=== PATIENT | female | born 1965 | race African-American/Black ===

== ENCOUNTER 2018-04-30 07:18 | Emergency (ER) | payer OTHER ==
[2018-04-30] MEDS ORDERED: CYCLOBENZAPRINE HCL 10 MG TABLET PO ONE (07:56)
[2018-04-30] MEDS ORDERED: HYDROCODONE/ACETAMINOPHEN 5-325 MG TABLET PO ONE (07:56)
[2018-04-30 08:43] LABS: AMORPHOUS SEDIMENT,URINE TRACE /HPF; APPEARANCE,URINE CLOUDY; BILIRUBIN,URINE NEGATIVE (NEGATIVE); COLOR,URINE YELLOW; GLUCOSE, URINE NEGATIVE (NEGATIVE); KETONES,URINE NEGATIVE (NEGATIVE); LEUKOCYTE ESTERASE,URINE NEGATIVE (NEGATIVE); NITRITE,URINE NEGATIVE (NEGATIVE); PROTEIN,URINE NEGATIVE (NEGATIVE); URINE SPECIFIC GRAVITY 1.023
--- NOTE | 2018-04-30 09:00 | ER Document Report ---
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 Patient denies that she had any immediate pain or popping sensation, states that the pain started gradually over the course of the last couple of days. She admits that it feels like a dull ache that when she moves is worse on the left side. Patient denies any numbness or tingling, loss of bladder or bowel function. TRAVEL OUTSIDE OF THE [place] IN LAST 30 DAYS: No - Related Data Allergies/Adverse Reactions: No Known Allergies Allergy (Verified 02/14/16 09:34) Past Medical History - General Information source: Patient - Social History Smoking Status: Never Smoker Frequency of alcohol use: Occasional Drug Abuse: None Family History: Reviewed & Not Pertinent Patient has suicidal ideation: No Patient has homicidal ideation: No Neurological Medical History: Reports: Hx Migraine Renal/ Medical History: Denies: Hx Peritoneal Dialysis Review of Systems - Review of Systems Constitutional: No symptoms reported EENT: No symptoms reported Cardiovascular: No symptoms reported Respiratory: No symptoms reported Gastrointestinal: No symptoms reported Genitourinary: No symptoms reported Female Genitourinary: No symptoms reported Musculoskeletal: See HPI Skin: No symptoms reported Hematologic/Lymphatic: No symptoms reported Neurological/Psychological: No symptoms reported Physical Exam - Vital signs Vitals: Temp Pulse Resp BP Pulse Ox 98.1 F 77 16 163/93 H 100 04/30/18 07:25 04/30/18 07:25 04/30/18 07:25 04/30/18 07:25 04/30/18 07:25 - Notes Notes: PHYSICAL EXAMINATION: GENERAL: Uncomfortable appearing, but in no acute distress. HEAD: Atraumatic, normocephalic. EYES: Pupils equal round and reactive to light, extraocular movements intact, sclera anicteric, conjunctiva are normal. ENT: ear canals without erythema or foreign body, TMs pearly leone with good bony landmarks, nares patent, oropharynx clear without exudates. Moist mucous membranes. NECK: Normal range of motion, supple without lymphadenopathy LUNGS: CTAB and equal. No wheezes rales or rhonchi. HEART: Regular rate and rhythm without murmurs ABDOMEN: Soft, no tenderness. No guarding, no rebound BACK: Left lumbar tenderness, no vertebral tenderness, normal ROM GI/: no CVA tenderness EXTREMITIES: Normal range of motion, no pitting edema. No cyanosis. NEUROLOGICAL: Cranial nerves grossly intact. Normal sensory/motor exams. PSYCH: Normal mood, normal affect. SKIN: Warm, Dry, normal turgor, no rashes or lesions noted Course - Re-evaluation Re-evalutation: 04/30/18 09:07 Urinalysis negative for infection. Patient be placed on muscle relaxers and given lidocaine patches. Patient advised that she can also take an anti- inflammatory with this. She is advised not to take multiple anti- inflammatories together. - Vital Signs Vital signs: Temp Pulse Resp BP Pulse Ox 98.1 F 77 16 163/93 H 100 04/30/18 07:25 04/30/18 07:25 04/30/18 07:25 04/30/18 07:25 04/30/18 07:25 - Laboratory Laboratory results interpreted by me: 04/30/18 08:00 Urine Urobilinogen 2.0 H Discharge - Discharge Clinical Impression: Left low back pain Qualifiers: Chronicity: acute Sciatica presence: without sciatica Qualified Code(s): M54.5 - Low back pain Condition: Stable Disposition: HOME, SELF-CARE Instructions: Muscle Strain ([facility]), Warm Packs ([facility]), Low Back Pain ([facility]) Additional Instructions: Return immediately for any new or worsening symptoms. Follow up with primary care provider, call tomorrow to make followup appointment. Prescriptions: Cyclobenzaprine HCl [Flexeril 10 mg Tablet] 10 mg PO TIDP PRN #15 tab PRN Reason: Lidocaine 1 each TP BID PRN #10 adh..patch PRN Reason: Forms: Return to Work Referrals: DAGMAR CORONEL MD [Primary Care Provider] - Follow up as needed
[2018-04-30 09:08] VITALS: BP 156/87
== END 2018-04-30 09:08 | disposition home or self-care (01) ==
LOC: ER 07:18
DX: M54.5 Low back pain (principal); R10.9 Unspecified abdominal pain; X50.0XXA Overexertion from strenuous movement or load, initial encounter; Y93.F2 Activity, caregiving, lifting; Y92.129 Unspecified place in nursing home as the place of occurrence of the external cause; Y99.0 Civilian activity done for income or pay
CPT/HCPCS: 81001; 99283

== ENCOUNTER 2020-08-25 08:17 | Observation (INO) | payer BC, OTHER ==
[2020-08-25] MEDS ORDERED: METHYLPREDNISOLONE INJ 125 MG/2 ML SDV IV ONE (08:33)
[2020-08-25] MEDS ORDERED: FAMOTIDINE INJ/PF 20 MG/2 ML SDV IV ONE (08:34)
[2020-08-25] MEDS ORDERED: DIPHENHYDRAMINE HCL 50 MG/ML VIAL IV ONE (08:34)
[2020-08-25] MEDS ORDERED: RACEPINEPHRINE HCL 2.25% NEB 0.5 ML AMPUL NEB ONE (08:40)
--- NOTE | 2020-08-25 08:41 | ER Document Report ---
ED General - General Chief Complaint: Swelling of Tongue Stated Complaint: FACIAL SWELLING,TONGUE SWELLING Time Seen by Provider: 08/25/20 08:29 Primary Care Provider: DAGMAR CORONEL MD [Primary Care Provider] - Follow up as needed TRAVEL OUTSIDE OF THE [place] IN LAST 30 DAYS: No - HPI Notes: 54-year-old female presents to the emergency room by private vehicle for complaints of lip swelling and tongue swelling that started afternoon. Patient reports that she has noticed her tongue getting slightly more swollen as well as her upper and lower lip. Denies any difficulty breathing, shortness of breath, chest pain, nausea vomiting or diarrhea. Patient states that she was recently placed on lisinopril for hypertension a month ago, she last took her dose of lisinopril at 2130 last night. Patient does have a history of allergy to fish, has not knowingly had any fish that she can recall. Has not tried any [id number]-[id number] medications for this issue. Denies any prior history of angioedema. Denies any chest pain, shortness of breath, drooling, nausea vomiti ng diarrhea, abdominal pain, fevers or chills, headache, lightheadedness, dizziness, weakness. - Related Data Allergies/Adverse Reactions: No Known Allergies Allergy (Verified 02/14/16 09:34) Home Medications: lisinopril Past Medical History - General Information source: Patient - Social History Smoking Status: Never Smoker Chew tobacco use (# tins/day): No Frequency of alcohol use: None Drug Abuse: None Family History: Reviewed & Not Pertinent Neurological Medical History: Reports: Hx Migraine Renal/ Medical History: Denies: Hx Peritoneal Dialysis Review of Systems - Review of Systems Constitutional: No symptoms reported EENT: See HPI Cardiovascular: No symptoms reported Respiratory: No symptoms reported Gastrointestinal: No symptoms reported Genitourinary: No symptoms reported Female Genitourinary: No symptoms reported Musculoskeletal: No symptoms reported Skin: No symptoms reported Hematologic/Lymphatic: No symptoms reported Neurological/Psychological: No symptoms reported Physical Exam - Vital signs Vitals: Temp Pulse Resp BP Pulse Ox 99.1 F 84 18 155/92 H 98 08/25/20 08:23 08/25/20 08:23 08/25/20 08:23 08/25/20 08:23 08/25/20 08:23 - General General appearance: Appears well - HEENT Head: Normocephalic Eyes: Normal Conjunctiva: Normal Extraocular movements intact: Yes Sinus: Normal Nasal: Normal Mouth/Lips: Angioedema Mucous membranes: Normal Pharynx: Normal. No: Erythema, Exudate, Peritonsillar abscess, Tonsillar hypertrophy, Uvular edema, Potential airway comprom. Neck: Normal - Respiratory Respiratory status: No respiratory distress Chest status: Nontender Breath sounds: Normal Chest palpation: Normal - Cardiovascular Rhythm: Regular Heart sounds: Normal auscultation Murmur: No - Abdominal Inspection: Normal Distension: No distension Bowel sounds: Normal Tenderness: Nontender Organomegaly: No organomegaly - Neurological Neuro grossly intact: Yes Orientation: AAOx4 [place] Coma Scale Eye Opening: Spontaneous [place] Coma Scale Verbal: Oriented [place] Coma Scale Motor: Obeys Commands [place] Coma Scale Total: 15 Speech: Normal Cranial nerves: Normal Cerebellar coordination: Normal Motor strength normal: LUE, RUE, LLE, RLE Additional motor exam 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 Nurses notes reviewed. On initial presentation patient, patient appears to be a grade 3 with the [place] grades fro angioedema. Consulted with Dr. Arzola, ER supervising physician, he did going to evaluate patient at bedside. Patient given Solu-Medrol 125 IVP, famotidine 20 mg IVP, Benadryl 50 mg IVP, epinephrine 0.3 IM as well as IV fluids. Type and screen pending. Patient is in no distress. Patient states she is having some difficulty articulating her words due to her tongue swelling. 0900-on reevaluation patient states that she is feeling better, patient still has some tongue swelling but sounds much clearer with her communication when she is speaking. 1100-consent for FFP signed, type and screen has been completed. 1320- consulted with Dr. Kacie Corley, hospitalist, to have patient placed in observation for her angioedema. Patient's vitals are stable and she has no distress. Patient was accepted to medical service. Patient agrees plan of care. 08/25/20 13:44 - Vital Signs Vital signs: Temp Pulse Resp BP Pulse Ox 99.1 F 84 15 135/86 H 100 08/25/20 08:23 08/25/20 08:23 08/25/20 12:31 08/25/20 12:31 08/25/20 12:31 - Laboratory Result Diagrams: 08/25/20 09:40 08/25/20 10:20 Laboratory results interpreted by me: 08/25/20 08/25/20 09:40 10:20 MCV 98 H MCH 34.0 H Plt Count 147 L Chloride 109 H Glucose 125 H - EKG Interpretation by Ne EKG shows normal: Sinus rhythm Rate: Normal Rhythm: NSR Additional EKG results interpreted by me: 08/25/20 13:46 HR 92, NSR, P axis 67, QRS 68, T 54. No STEMI, no ST segment elevations. Evaluated by Dr. Arzola Discharge - Discharge Clinical Impression: Angioedema Condition: Stable Disposition: ADMITTED OBSERVATION Unit Admitted: Telemetry Referrals: DAGMAR CORONEL MD [Primary Care Provider] - Follow up as needed
[2020-08-25] MEDS ORDERED: NORMAL SALINE 1000 ML 1,000 ML IV ONE (08:44)
[2020-08-25] MEDS ORDERED: EPINEPHRINE INJ/PF 1 MG/1 ML AMPULE IM ONE (08:44)
[2020-08-25] MEDS ORDERED: EPINEPHRINE INJ/PF 1 MG/1 ML AMPULE ONE (08:45)
--- NOTE | 2020-08-25 09:18 | RADIOLOGY REPORT (SQ) ---
EXAM DESCRIPTION: CHEST SINGLE VIEW IMAGES COMPLETED DATE/TIME: 08/25/2020 9:02 am REASON FOR STUDY: angioedema COMPARISON: None. EXAM PARAMETERS: NUMBER OF VIEWS: One view. TECHNIQUE: Single frontal radiographic view of the chest acquired. RADIATION DOSE: NA LIMITATIONS: None. FINDINGS: LUNGS AND PLEURA: No opacities, masses or pneumothorax. No pleural effusion. MEDIASTINUM AND HILAR STRUCTURES: No masses. Contour normal. HEART AND VASCULAR STRUCTURES: Heart normal in size. Normal vasculature. BONES: No acute findings. HARDWARE: None in the chest. OTHER: No other significant finding. IMPRESSION: NO ACUTE RADIOGRAPHIC FINDING IN THE CHEST. TECHNICAL DOCUMENTATION: JOB ID: [id number] 2010 [employer]- All Rights Reserved Reading location - IP/workstation name: [id number]
--- NOTE | 2020-08-25 09:54 | EKG REPORT ---
SEVERITY:- NORMAL ECG - SINUS RHYTHM : Confirmed by: Marguerite Hwang 25-Aug-2020 09:54:06
[2020-08-25 09:56] LABS: ABSOLUTE EOSINOPHILS # (AUTO) 0.3 10^3/uL (0.0-0.6); ABSOLUTE LYMPHOCYTES (AUTO) 1.7 10^3/uL (0.5-4.7); BASOPHILS % (AUTO) 0.3 % (0-2); HEMOGLOBIN 13.3 g/dL (12.0-15.5); PLATELET COUNT 147 10^3/uL (150-450); TOTAL CELLS COUNTED % (AUTO) 100 %
[2020-08-25 10:01] LABS: ABSOLUTE MONOCYTES (AUTO) 0.5 10^3/uL (0.1-1.4); ABSOLUTE NEUT (AUTO) 4.6 10^3/uL (1.7-8.2); EOSINOPHILS % (AUTO) 4.2 % (0-6); HEMATOCRIT 38.6 % (36.0-47.0); LYMPHOCYTES % (AUTO) 23.9 % (13-45); MEAN CORPUSCULAR HGB CONC 34.5 g/dL (32.0-36.0); MEAN CORPUSCULAR VOLUME 98 fl (80-97); MONOCYTES % (AUTO) 7.2 % (3-13); RED BLOOD COUNT 3.92 10^6/uL (3.72-5.28); RED CELL DISTRIBUTION WIDTH 13.2 % (11.5-14.0); SEGMENTED NEUTROPHILS % (AUTO) 64.4 % (42-78); WHITE BLOOD COUNT 7.2 10^3/uL (4.0-10.5)
[2020-08-25 11:04] LABS: ALBUMIN 4.3 g/dL (3.5-5.0); ALKALINE PHOSPHATASE 62 U/L (38-126); ANION GAP 9 (5-19); ASPARTATE AMINO TRANSFERASE 31 U/L (14-36); BILIRUBIN,DIRECT 0.2 mg/dL (0.0-0.4); BILIRUBIN,TOTAL 0.6 mg/dL (0.2-1.3); BLOOD UREA NITROGEN 12 mg/dL (7-20); CALCIUM 9.4 mg/dL (8.4-10.2); CARBON DIOXIDE 25 mmol/L (22-30); CHLORIDE 109 mmol/L (98-107); GLUCOSE 125 mg/dL (75-110); TOTAL PROTEIN 7.1 g/dL (6.3-8.2)
[2020-08-25] MEDS ORDERED: NORMAL SALINE 250 ML IV PRN ×2 (11:46)
[2020-08-25] MEDS ORDERED: DIPHENHYDRAMINE HCL 50 MG/ML VIAL IV PRN (14:42)
--- NOTE | 2020-08-25 17:13 | PDOC H&P ---
History of Present Illness Admission Date/PCP: 08/25/20 13:30 DAGMAR CORONEL MD Patient complains of: tongue swelling and facial swelling History of Present Illness: FRIDA HARRINGTON is a 54 year old female, recent diagnosis of high blood pressure, history of glaucoma who came to the ED due to tongue swelling lip swelling and pooling of saliva. She was recently diagnosed with hypertension a month and a half back and was started on lisinopril 10. 1 day prior to admission she noted mild lip swelling. The morning of admission she noted increased swelling of her face lip and tongue with associated pooling of saliva. She denied any shortness of breath chest pain palpitations. She denies any fever or rash. In the ED vital signs 135/87 heart rate of 106 respiratory rate of 10 saturating 100% on room air. Physical exam showed facial swelling with lip and tongue swelling. No stridor, no cyanosis. CBC and CMP were unremarkable. She was given epinephrine IM, IV Benadryl, IV methylprednisolone. Hospitalist service was called for further management. Past Medical History Cardiac Medical History: Reports: Hyperlipidema, Hypertension Pulmonary Medical History: Denies: Asthma, Bronchitis, Chronic Obstructive Pulmonary Disease (COPD), Respiratory Failure EENT Medical History: Reports: Cataracts, Other - Glaucoma Neurological Medical History: Reports: Migraine Endocrine Medical History: Reports: None Renal/ Medical History: Reports: None Malignancy Medical History: Reports: None GI Medical History: Reports: None Musculoskeltal Medical History: Reports: None Skin Medical History: Reports: None Psychiatric Medical History: Reports: None Hematology: Reports: None Infectious Medical History: Reports: None Past Surgical History Past Surgical History: Reports: Other - Eye surgeries Social History Information Source: Patient Lives with: Family Smoking Status: Never Smoker Electronic Cigarette use?: No Frequency of Alcohol Use: None Drugs: None Family History Family History: Reviewed & Not Pertinent Parental Family History Reviewed: Yes Children Family History Reviewed: Yes Sibling(s) Family History Reviewed.: Yes Medication/Allergy Home Medications: Atorvastatin Calcium [Lipitor 20 mg Tablet] 20 mg PO QHS 08/25/20 Cetirizine HCl [Zyrtec 10 mg Tablet] 10 mg PO DAILY 08/25/20 Dorzolamide/Timolol/Pf [Cosopt Pf Eye Drops] 1 each OU BID 08/25/20 Lisinopril [Prinivil 5 mg Tablet] 5 mg PO DAILY 08/25/20 Travoprost 1 drop OU QHS 08/25/20 Ubidecarenone/Vit E Acet [Co Q-10 100 mg Softgel] 400 mg PO DAILY 08/25/20 Allergies/Adverse Reactions: lisinopril Allergy (Severe, Verified 08/25/20 14:53) Angioneurotic Edema Review of Systems Constitutional: ABSENT: chills, fever(s), weakness Eyes: ABSENT: visual disturbances Ears: ABSENT: hearing changes Nose, Mouth, and Throat: ABSENT: sore throat Cardiovascular: PRESENT: edema. ABSENT: dyspnea on exertion, orthropnea Respiratory: ABSENT: cough, dyspnea Gastrointestinal: ABSENT: abdominal pain, diarrhea Neurological: PRESENT: abnormal speech. ABSENT: focal weakness Physical Exam Vital Signs: Temp Pulse Resp BP Pulse Ox 98.9 F 109 H 16 145/94 H 100 08/25/20 16:31 08/25/20 16:31 08/25/20 16:31 08/25/20 16:31 08/25/20 16:31 Intake & Output 08/24/20 08/25/20 08/26/20 06:59 06:59 06:59 Intake Total 1175 Balance 1175 Weight 57.6 kg General appearance: PRESENT: no acute distress, cooperative Head exam: PRESENT: atraumatic, normocephalic Eye exam: PRESENT: EOMI, PERRLA Ear exam: PRESENT: normal external ear exam Mouth exam: PRESENT: other - Positive lip and tongue swelling Throat exam: ABSENT: post pharyngeal erythema, tonsillar erythema Neck exam: PRESENT: full ROM. ABSENT: JVD, lymphadenopathy Respiratory exam: PRESENT: clear to auscultation brie, symmetrical, unlabored. ABSENT: accessory muscle use, stridor, wheezes Cardiovascular exam: PRESENT: RRR, +S1, +S2 Pulses: PRESENT: +2 pedal pulses bilateral Vascular exam: PRESENT: normal capillary refill GI/Abdominal exam: PRESENT: normal bowel sounds, soft. ABSENT: rebound, tenderness Extremities exam: PRESENT: full ROM Musculoskeletal exam: PRESENT: full ROM Neurological exam: PRESENT: alert, awake, oriented to person, oriented to place, oriented to time, oriented to situation Psychiatric exam: PRESENT: normal mood Skin exam: PRESENT: normal color Results Laboratory Results: 08/25/20 09:40 08/25/20 10:20 08/25/20 08/25/20 08/25/20 09:40 09:40 09:40 WBC 7.2 RBC 3.92 Hgb 13.3 Hct 38.6 MCV 98 H MCH 34.0 H MCHC 34.5 RDW 13.2 Plt Count 147 L Seg Neutrophils % 64.4 Sodium Cancelled Potassium Cancelled Chloride Cancelled Carbon Dioxide Cancelled Anion Gap Cancelled BUN Cancelled Creatinine Cancelled Est GFR ( Amer) Cancelled Est GFR (Non-Af Amer) Cancelled Glucose Cancelled Calcium Cancelled Total Bilirubin Cancelled AST Cancelled Alkaline Phosphatase Cancelled Total Protein Cancelled Albumin Cancelled Blood Type A POSITIVE Antibody Screen NEGATIVE 08/25/20 10:20 WBC RBC Hgb Hct MCV MCH MCHC RDW Plt Count Seg Neutrophils % Sodium 143.1 Potassium 4.0 Chloride 109 H Carbon Dioxide 25 Anion Gap 9 BUN 12 Creatinine 0.69 Est GFR ( Amer) > 60 Est GFR (Non-Af Amer) Glucose 125 H Calcium 9.4 Total Bilirubin 0.6 AST 31 Alkaline Phosphatase 62 Total Protein 7.1 Albumin 4.3 Blood Type Antibody Screen Impressions: Chest X-Ray 08/25/20 08:35 IMPRESSION: NO ACUTE RADIOGRAPHIC FINDING IN THE CHEST. Assessment and Plan - Diagnosis (1) Angioedema Qualifiers: Encounter type: initial encounter Qualified Code(s): T78.3XXA - Angioneurotic edema, initial encounter Is this a current diagnosis for this admission?: Yes Plan: - recently diagnosed HTN started on lisinopril has been taking 1 1/2 months - came in with lip and tongue swelling with pooling of saliva - no cyanosis, no desaturation, no stridor - no known allergies besides fish - given epinephrine IM, FFP, benadryl and dexa in the ED - will admit for obvs - continue benadrylm steroids add famotidine - monitor in tele floor - lisinopril added to allergy list (2) Essential hypertension Is this a current diagnosis for this admission?: Yes Plan: - was taking lisinopril but developed angioedema - will have to switch to amlodipine - ff.up with PCP (3) HLD (hyperlipidemia) Qualifiers: Hyperlipidemia type: unspecified Qualified Code(s): E78.5 - Hyperlipidemia, unspecified Is this a current diagnosis for this admission?: Yes Plan: - will resume lisinopril - Time Time Spent with patient: 35 or more minutes Anticipated Discharge Disposition: Home, Self Care Anticipated Discharge Timeframe: within 48 hours
[2020-08-25] MEDS: DIPHENHYDRAMINE HCL 50 MG/ML VIAL IV SCH (17:22)
[2020-08-25] MEDS ORDERED: TIMOLOL OU SCH (18:00)
[2020-08-25] MEDS ORDERED: DORZOLAMIDE OU SCH (18:00)
--- NOTE | 2020-08-25 18:02 | ER Document Report ---
Entered by JAM FELDER SCRIBE 08/25/20 0912 Acting as scribe for:MARY BRICEÑO MD Doctor's Note Notes: 08/25/20 17:59 Patient presents today which is 2 days with swelling noted in her tongue. Patient takes lisinopril for high blood pressure which she has been on for the last month patient's only other allergy that she is aware of his seafood. Patient denies having had any recent seafood. And patient's last dose of lisinopril was yesterday. On exam patient has no drooling or stridor no respiratory distress at this time skin otherwise shows no urticarial lesions. There is swelling of the lips and tongue posterior oropharynx is clear and patent no exudate or any signs for infection. Diagnosis angioedema of the tongue secondary to medications. Patient is improving while in the ED, however there is swelling that has not completely resolved. Orders for additional treatment including fresh frozen plasma has been made. Patient has responded to IM epinephrine IV Benadryl IV Pepcid and IV Solu-Medrol. However there is still significant swelling of tongue present and patient will be presented for admission to the hospital. I personally performed the services described in the documentation, reviewed and edited the documentation which was dictated to the scribe in my presence, and it accurately records my words and actions.
[2020-08-25] MEDS: IPRATROPIUM/ALBUTEROL 0.5-2.5 MG/3 ML AMPUL NEB SCH (19:51)
[2020-08-25] MEDS: FAMOTIDINE INJ/PF 20 MG/2 ML SDV IV SCH (21:33)
[2020-08-25] MEDS ORDERED: (PENDING PHARMACY ID) (Travoprost [Travoprost] 1 DROP) OU SCH (22:00)
[2020-08-25] MEDS ORDERED: ATORVASTATIN CALCIUM 20 MG TABLET PO SCH (22:00)
[2020-08-25] MEDS ORDERED: LATANOPROST 0.005% OPH SOLN 2.5 ML OU SCH (22:00)
[2020-08-26 00:02] LABS: ABSOLUTE LYMPHOCYTES (AUTO) 0.6 10^3/uL (0.5-4.7); ABSOLUTE MONOCYTES (AUTO) 0.2 10^3/uL (0.1-1.4); ABSOLUTE NEUT (AUTO) 6.2 10^3/uL (1.7-8.2); BASOPHILS % (AUTO) 0.1 % (0-2); HEMATOCRIT 35.7 % (36.0-47.0); HEMOGLOBIN 12.8 g/dL (12.0-15.5); LYMPHOCYTES % (AUTO) 8.8 % (13-45); MEAN CORPUSCULAR HEMOGLOBIN 34.4 pg (27.0-33.4); MEAN CORPUSCULAR HGB CONC 35.7 g/dL (32.0-36.0); MEAN CORPUSCULAR VOLUME 96 fl (80-97); MONOCYTES % (AUTO) 3.5 % (3-13); PLATELET COUNT 169 10^3/uL (150-450); RED BLOOD COUNT 3.71 10^6/uL (3.72-5.28); RED CELL DISTRIBUTION WIDTH 13.6 % (11.5-14.0); SEGMENTED NEUTROPHILS % (AUTO) 87.6 % (42-78); TOTAL CELLS COUNTED % (AUTO) 100 %; WHITE BLOOD COUNT 7.1 10^3/uL (4.0-10.5)
[2020-08-26] MEDS: DIPHENHYDRAMINE HCL 50 MG/ML VIAL IV SCH ×2 (00:11→05:34)
[2020-08-26] MEDS: IPRATROPIUM/ALBUTEROL 0.5-2.5 MG/3 ML AMPUL NEB SCH (08:15)
[2020-08-26] MEDS ORDERED: METHYLPREDNISOLONE INJ 125 MG/2 ML SDV IV SCH (10:00)
[2020-08-26] MEDS ORDERED: ENOXAPARIN SODIUM INJ 40 MG/0.4 ML DISP.SYRIN SUBCUT SCH (10:00)
[2020-08-26] MEDS: FAMOTIDINE INJ/PF 20 MG/2 ML SDV IV SCH (10:51)
[2020-08-26 11:29] VITALS: BP 140/81
--- NOTE | 2020-08-26 16:53 | PDOC DISCHARGE SUMMARY ---
Impression - Admit/DC Date/PCP Admission Date/Primary Care Provider: 08/25/20 13:30 DAGMAR CORONEL MD Discharge Date: 08/26/20 - Discharge Diagnosis (1) Angioedema Is this a current diagnosis for this admission?: Yes (2) Essential hypertension Is this a current diagnosis for this admission?: Yes (3) HLD (hyperlipidemia) Is this a current diagnosis for this admission?: Yes - Additional Information Discharge Diet: As Tolerated Discharge Activity: Activity As Tolerated Referrals: Douglas Ndiaye [Other] (pt to make appt) Prescriptions: Famotidine [Acid Line Installer Repairer] 20 mg PO BID 7 Days #14 tablet Home Medications: Atorvastatin Calcium [Lipitor 20 mg Tablet] 20 mg PO QHS 08/25/20 Cetirizine HCl [Zyrtec 10 mg Tablet] 10 mg PO DAILY 08/25/20 Dorzolamide/Timolol/Pf [Cosopt Pf Eye Drops] 1 each OU BID 08/25/20 Travoprost 1 drop OU QHS 08/25/20 Ubidecarenone/Vit E Acet [Co Q-10 100 mg Softgel] 400 mg PO DAILY 08/25/20 Famotidine [Acid Line Installer Repairer] 20 mg PO BID 7 Days #14 tablet 08/26/20 History of Present Illiness History of Present Illness: FRIDA HARRINGTON is a 54 year old female, recent diagnosis of high blood pressure, history of glaucoma who came to the ED due to tongue swelling lip swelling and pooling of saliva. She was recently diagnosed with hypertension a month and a half back and was started on lisinopril 10. 1 day prior to admission she noted mild lip swelling. The morning of admission she noted increased swelling of her face lip and tongue with associated pooling of saliva. She denied any shortness of breath chest pain palpitations. She denies any fever or rash. In the ED vital signs 135/87 heart rate of 106 respiratory rate of 10 saturating 100% on room air. Physical exam showed facial swelling with lip and tongue swelling. No stridor, no cyanosis. CBC and CMP were unremarkable. She was given epinephrine IM, IV Benadryl, IV methylprednisolone. Hospitalist service was called for further management. Hospital Course Hospital Course: Patient was admitted overnight for observation. She was given famotidine, diphenhydramine and IV steroids. She did well overnight with complete resolution of lip and tongue swelling overnight. She was successfully discharged on epi pen, famotidine and benadryl. Lisinopril added to her allergy list. Physical Exam Vital Signs: Temp Pulse Resp BP Pulse Ox 97.8 F 97 18 140/81 H 99 08/26/20 11:27 08/26/20 11:27 08/26/20 11:27 08/26/20 11:27 08/26/20 11:27 Intake & Output 08/25/20 08/26/20 08/27/20 06:59 06:59 06:59 Intake Total 1734 Balance 1734 Weight 57.6 kg General appearance: PRESENT: no acute distress, mild distress Head exam: PRESENT: atraumatic, normocephalic Eye exam: PRESENT: EOMI, PERRLA Mouth exam: PRESENT: moist, other - no tongue swelling, no lip swelling Throat exam: ABSENT: post pharyngeal erythema, tonsillar erythema Neck exam: PRESENT: full ROM Respiratory exam: PRESENT: clear to auscultation brie, symmetrical, unlabored Cardiovascular exam: PRESENT: RRR, +S1, +S2 Pulses: PRESENT: +2 pedal pulses bilateral GI/Abdominal exam: PRESENT: normal bowel sounds, soft. ABSENT: rebound, tenderness Extremities exam: PRESENT: full ROM Musculoskeletal exam: PRESENT: full ROM Neurological exam: PRESENT: alert, awake, oriented to person, oriented to place, oriented to time, oriented to situation Psychiatric exam: PRESENT: normal mood Skin exam: PRESENT: normal color Results Laboratory Results: WBC 7.1 10^3/uL (4.0-10.5) 08/25/20 23:43 RBC 3.71 10^6/uL (3.72-5.28) L 08/25/20 23:43 Hgb 12.8 g/dL (12.0-15.5) 08/25/20 23:43 Hct 35.7 % (36.0-47.0) L 08/25/20 23:43 MCV 96 fl (80-97) 08/25/20 23:43 MCH 34.4 pg (27.0-33.4) H 08/25/20 23:43 MCHC 35.7 g/dL (32.0-36.0) 08/25/20 23:43 RDW 13.6 % (11.5-14.0) 08/25/20 23:43 Plt Count 169 10^3/uL (150-450) 08/25/20 23:43 Lymph % (Auto) 8.8 % (13-45) L 08/25/20 23:43 [place] % (Auto) 3.5 % (3-13) 08/25/20 23:43 Eos % (Auto) 0.0 % (0-6) 08/25/20 23:43 Baso % (Auto) 0.1 % (0-2) 08/25/20 23:43 Absolute Neuts (auto) 6.2 10^3/uL (1.7-8.2) 08/25/20 23:43 Absolute Lymphs (auto) 0.6 10^3/uL (0.5-4.7) 08/25/20 23:43 Absolute Monos (auto) 0.2 10^3/uL (0.1-1.4) 08/25/20 23:43 Absolute Eos (auto) 0.0 10^3/uL (0.0-0.6) 08/25/20 23:43 Absolute Basos (auto) 0.0 10^3/uL (0.0-0.2) 08/25/20 23:43 Seg Neutrophils % 87.6 % (42-78) H 08/25/20 23:43 Sodium 143.1 mmol/L (137-145) 08/25/20 10:20 Potassium 4.0 mmol/L (3.6-5.0) 08/25/20 10:20 Chloride 109 mmol/L (98-107) H 08/25/20 10:20 Carbon Dioxide 25 mmol/L (22-30) 08/25/20 10:20 Anion Gap 9 (5-19) 08/25/20 10:20 BUN 12 mg/dL (7-20) 08/25/20 10:20 Creatinine 0.69 mg/dL (0.52-1.25) 08/25/20 10:20 Est GFR ( Amer) > 60 (>60) 08/25/20 10:20 Est GFR (Non-Af Amer) Cancelled 08/25/20 09:40 Est GFR (MDRD) Non-Af > 60 (>60) 08/25/20 10:20 Glucose 125 mg/dL (75-110) H 08/25/20 10:20 Calcium 9.4 mg/dL (8.4-10.2) 08/25/20 10:20 Total Bilirubin 0.6 mg/dL (0.2-1.3) 08/25/20 10:20 Direct Bilirubin 0.2 mg/dL (0.0-0.4) 08/25/20 10:20 Neonat Total Bilirubin Not Reportable 08/25/20 10:20 Neonat Direct Bilirubin Not Reportable 08/25/20 10:20 Neonat Indirect Bili Not Reportable 08/25/20 10:20 AST 31 U/L (14-36) 08/25/20 10:20 ALT 25 U/L (<35) 08/25/20 10:20 Alkaline Phosphatase 62 U/L (38-126) 08/25/20 10:20 Total Protein 7.1 g/dL (6.3-8.2) 08/25/20 10:20 Albumin 4.3 g/dL (3.5-5.0) 08/25/20 10:20 EGFR Cancelled 08/25/20 09:40 Blood Type A POSITIVE 08/25/20 09:40 Antibody Screen NEGATIVE 08/25/20 09:40 Impressions: Chest X-Ray 08/25/20 08:35 IMPRESSION: NO ACUTE RADIOGRAPHIC FINDING IN THE CHEST. Plan Health Concerns: Anaphylaxis Kit Use your anaphylaxis kit for life-threatening allergic reactions. It can be carried with you. After using the kit, you should get immediate medical attention. The kit contains a syringe with adrenaline for injection, and an antihistamine pill. Expected side effects of adrenaline are rapid heartbeat, shakiness, weakness, and occasionally headache or nausea. These symptoms develop within minutes of the injection, and usually wear off within 30 minutes. The antihistamine causes drowsiness. Review the instructions in the kit carefully. Be sure you know how to use it properly. Check the expiration date, and replace an unused kit before it expires. If you haven't used an anaphylaxis kit before, please return here when you've filled the prescription. We'll show you how to use it. Time Spent: Less than 30 Minutes Stroke Is this a Stroke Patient?: No Acute Heart Failure Is this a Heart Failure Patient?: No
== END 2020-08-26 12:00 | disposition home or self-care (01) ==
LOC: ER 08:17 → EH 13:30 → 4N 15:42
PROVIDERS: ADMIT Internal Medicine; ATTEND Internal Medicine
DX: T78.3XXA Angioneurotic edema, initial encounter (principal); I10 Essential (primary) hypertension; E78.5 Hyperlipidemia, unspecified; H40.9 Unspecified glaucoma; Z79.899 Other long term (current) drug therapy; Z88.8 Allergy status to other drugs, medicaments and biological substances; X58.XXXA Exposure to other specified factors, initial encounter
CPT/HCPCS: 93005; 99284; 96372; 96361; 96374; 96375; 86900; 86901; 36415; 36430; 86850; 85025; 80053; 71045; 93010; 94640 ×2; G0378 ×2; P9017; J1200 ×2; J0171; J2930 ×2; J7030; S0028 ×2; J3490

== ENCOUNTER 2020-08-30 14:55 | Emergency (ER) | payer BC ==
[2020-08-30] MEDS ORDERED: DIPHENHYDRAMINE HCL 50 MG/ML VIAL IV ONE (15:13)
[2020-08-30] MEDS ORDERED: FAMOTIDINE INJ/PF 20 MG/2 ML SDV IV ONE (15:13)
[2020-08-30] MEDS ORDERED: EPINEPHRINE INJ/PF 1 MG/1 ML AMPULE IM ONE (15:13)
[2020-08-30] MEDS ORDERED: METHYLPREDNISOLONE INJ 125 MG/2 ML SDV IV ONE (15:13)
--- NOTE | 2020-08-30 15:16 | ER Document Report ---
ED Medical Screen (RME) - General Chief Complaint: Facial Swelling Stated Complaint: FACIAL SWELLING Time Seen by Provider: 08/30/20 15:08 Primary Care Provider: DAGMAR CORONEL MD [Primary Care Provider] - Follow up as needed TRAVEL OUTSIDE OF THE [place] IN LAST 30 DAYS: No - HPI Notes: 08/30/20 15:14 54-year-old female to the emergency department with complaints of lip swelling that began while she was at the dentist. Last week she was trying to get some dental work done and her lips began to swell. Patient was admitted to the hospital and was believed that the lisinopril was causing her angioedema. She was discharged and she is doing well with the lisinopril stopped. However, she went back to the dentist today and had lidocaine in her mouth to numb her and then her lips began to swell again. She states that she was written for an EpiPen but did not take it. She states that she feels like her heart is beating fast and she feels little lightheaded as well. Denies any nausea vomiting. Denies any shortness of breath. Denies any chest pain. Denies any diarrhea. Charge was called and asked for bed immediately. I have placed an order for an epi injection and have notified ER attending of patient. I performed a brief medical screening exam on the patient determined that the patient needs further evaluation and management by main side provider. I have placed initial orders to help expedite care. - Related Data Allergies/Adverse Reactions: lisinopril Allergy (Severe, Verified 08/30/20 15:08) Angioneurotic Edema fish Allergy (Uncoded 08/30/20 15:08) Past Medical History - Past Medical History Cardiac Medical History: Reports: Hx Hypercholesterolemia, Hx Hypertension Denies: Hx Congestive Heart Failure, Hx Heart Attack Pulmonary Medical History: Denies: Hx Asthma, Hx Bronchitis, Hx COPD, Hx Pneumonia, Hx Respiratory Failure, Hx Tuberculosis Neurological Medical History: Reports: Hx Migraine. Denies: Hx Seizures, Hx Parkinson's Disease Renal/ Medical History: Denies: Hx End Stage Renal Disease, Hx Kidney Stones, Hx Peritoneal Dialysis GI Medical History: Denies: Hx Cirrhosis, Hx Gastroesophageal Reflux Disease, Hx Ulcer Musculoskeltal Medical History: Denies Hx Arthritis, Denies Hx Multiple Sclerosis Psychiatric Medical History: Denies: Hx Bipolar Disorder, Hx Depression, Hx Schizophrenia Past Surgical History: Reports: Other - Eye surgeries Physical Exam - Vital signs Vitals: Temp Pulse Resp BP Pulse Ox 98.9 F 99 17 160/106 H 98 08/30/20 15:06 08/30/20 15:06 08/30/20 15:06 08/30/20 15:06 08/30/20 15:06 Course - Vital Signs Vital signs: Temp Pulse Resp BP Pulse Ox 98.9 F 99 17 160/106 H 98 08/30/20 15:06 08/30/20 15:06 08/30/20 15:06 08/30/20 15:06 08/30/20 15:06 Doctor's Discharge - Discharge Referrals: DAGMAR CORONEL MD [Primary Care Provider] - Follow up as needed
[2020-08-30 15:40] LABS: ABSOLUTE EOSINOPHILS # (AUTO) 0.1 10^3/uL (0.0-0.6); ABSOLUTE LYMPHOCYTES (AUTO) 2.2 10^3/uL (0.5-4.7); ABSOLUTE MONOCYTES (AUTO) 0.7 10^3/uL (0.1-1.4); ABSOLUTE NEUT (AUTO) 7.2 10^3/uL (1.7-8.2); BASOPHILS % (AUTO) 0.3 % (0-2); EOSINOPHILS % (AUTO) 1.2 % (0-6); HEMATOCRIT 43.3 % (36.0-47.0); HEMOGLOBIN 14.7 g/dL (12.0-15.5); LYMPHOCYTES % (AUTO) 21.7 % (13-45); MEAN CORPUSCULAR HEMOGLOBIN 33.2 pg (27.0-33.4); MEAN CORPUSCULAR HGB CONC 33.9 g/dL (32.0-36.0); MEAN CORPUSCULAR VOLUME 98 fl (80-97); MONOCYTES % (AUTO) 6.4 % (3-13); PLATELET COUNT 189 10^3/uL (150-450); RED BLOOD COUNT 4.43 10^6/uL (3.72-5.28); SEGMENTED NEUTROPHILS % (AUTO) 70.4 % (42-78); TOTAL CELLS COUNTED % (AUTO) 100 %; WHITE BLOOD COUNT 10.2 10^3/uL (4.0-10.5)
--- NOTE | 2020-08-30 15:53 | ER Document Report ---
Entered by ADDISON HIDALGO SCRIBE 08/30/20 1546 Acting as scribe for:PEACE TURNER, DO ED General - General Chief Complaint: Facial Swelling Stated Complaint: FACIAL SWELLING Time Seen by Provider: 08/30/20 15:08 Primary Care Provider: DAGMAR CORONEL MD [COMMUNITY BASED STAFF] - Follow up as needed Information source: Patient Notes: This 54 year old female patient with a history of HTN and HLD, presents to the emergency department today with upper lip swelling. Patient states she was at a dentist appointment today, received x4 shots to the left side of her mouth for dental work, and her upper lip began to swell during the appointment. Patient states she visited her dentist last week and reports lip swelling after having lisinopril then visited the ED. Patient reports some tongue swelling and trouble sleeping last night which have been relieved. Patient states her heart was racing after her appointment today, with a headache and mild lightheadedness. TRAVEL OUTSIDE OF THE [place] IN LAST 30 DAYS: No - Related Data Allergies/Adverse Reactions: lisinopril Allergy (Severe, Verified 08/30/20 15:08) Angioneurotic Edema fish Allergy (Uncoded 08/30/20 15:08) Past Medical History - General Information source: Patient - Social History Smoking Status: Never Smoker Cigarette use (# per day): No Chew tobacco use (# tins/day): No Drug Abuse: None Family History: Reviewed & Not Pertinent - Past Medical History Cardiac Medical History: Reports: Hx Hypercholesterolemia, Hx Hypertension Neurological Medical History: Reports: Hx Migraine Past Surgical History: Reports: Other - Eye surgeries Review of Systems - Review of Systems Constitutional: No symptoms reported EENT: See HPI, Mouth swelling - tongue and upper lip Cardiovascular: See HPI, Heart racing, Lightheaded - mild Respiratory: No symptoms reported Gastrointestinal: No symptoms reported Genitourinary: No symptoms reported Female Genitourinary: No symptoms reported Musculoskeletal: No symptoms reported Skin: No symptoms reported Hematologic/Lymphatic: No symptoms reported Neurological/Psychological: See HPI, Headaches -: Yes All other systems reviewed and negative Physical Exam - Vital signs Vitals: Temp Pulse Resp BP Pulse Ox 98.9 F 99 17 160/106 H 98 08/30/20 15:06 08/30/20 15:06 08/30/20 15:06 08/30/20 15:06 08/30/20 15:06 - General General appearance: Appears well, Alert - HEENT Head: Normocephalic, Atraumatic Eyes: Normal Pupils: PERRL Notes: Soft tissue swelling of the upper lip. No other facial swelling or swelling of the tongue. - Respiratory Respiratory status: No respiratory distress Chest status: Nontender Breath sounds: Normal Chest palpation: Normal - Cardiovascular Rhythm: Regular Heart sounds: Normal auscultation Murmur: No - Abdominal Inspection: Normal Distension: No distension Bowel sounds: Normal Tenderness: Nontender - Extremities General upper extremity: Normal inspection, Normal ROM General lower extremity: Normal inspection, Normal ROM. No: Edema - Neurological Neuro grossly intact: Yes Cognition: Normal Orientation: AAOx4 [place] Coma Scale Eye Opening: Spontaneous [place] Coma Scale Verbal: Oriented Jarvis Coma Scale Motor: Obeys Commands Blackstone Coma Scale Total: 15 Speech: Normal Motor strength normal: LUE, RUE, LLE, RLE Sensory: Normal - Psychological Associated symptoms: Normal affect, Normal mood - Skin Skin Temperature: Warm Skin Moisture: Dry Skin Color: Normal Course - Re-evaluation Re-evalutation: 08/30/20 18:01 MDM 54 year old s/p allergic rxn likely due to xylocaine injection a short time prior to arrival at dentist. Already has epi pen and pepcid. Will do short course of prednisone. Discussed return precautions and she expressed understanding. - Vital Signs Vital signs: Temp Pulse Resp BP Pulse Ox 98.9 F 99 18 126/93 H 99 08/30/20 15:06 08/30/20 15:06 08/30/20 17:01 08/30/20 17:00 08/30/20 17:01 - Laboratory Result Diagrams: 08/30/20 15:26 08/30/20 15:26 Laboratory results interpreted by me: 08/30/20 08/30/20 15:26 15:26 MCV 98 H Carbon Dioxide 31 H Calcium 10.5 H - EKG Interpretation by Me EKG shows normal: Sinus rhythm - NSR Nl axis [address] elevation or depression my interpretation. Rate: Normal Rhythm: NSR Discharge - Discharge Clinical Impression: Allergic reaction caused by a drug Qualifiers: Encounter type: initial encounter Qualified Code(s): T78.40XA - Allergy, unspecified, initial encounter Condition: Stable Disposition: HOME, SELF-CARE Instructions: Acute Allergic Reaction ([facility]), Acute Allergic Reaction to Drugs ([facility]) Additional Instructions: See your doctor in follow up. Please return here for chest pain, shortness of breath or other problems or concerns. No work 08/30/20. Take medicine as directed. Medicine was sent to [facility]. Forms: Return to Work Referrals: DAGMAR CORONEL MD [COMMUNITY BASED STAFF] - Follow up as needed I personally performed the services described in the documentation, reviewed and edited the documentation which was dictated to the scribe in my presence, and it accurately records my words and actions.
[2020-08-30 15:58] LABS: ALBUMIN 4.8 g/dL (3.5-5.0); ALKALINE PHOSPHATASE 67 U/L (38-126); ANION GAP 9 (5-19); ASPARTATE AMINO TRANSFERASE 33 U/L (14-36); BILIRUBIN,DIRECT 0.3 mg/dL (0.0-0.4); BILIRUBIN,TOTAL 0.6 mg/dL (0.2-1.3); BLOOD UREA NITROGEN 14 mg/dL (7-20); CALCIUM 10.5 mg/dL (8.4-10.2); CARBON DIOXIDE 31 mmol/L (22-30); CHLORIDE 100 mmol/L (98-107); GLUCOSE 95 mg/dL (75-110); POTASSIUM 3.8 mmol/L (3.6-5.0); TOTAL PROTEIN 7.9 g/dL (6.3-8.2)
--- NOTE | 2020-08-30 18:01 | EKG REPORT ---
SEVERITY:- NORMAL ECG - SINUS RHYTHM : Confirmed by: Krunal Laboy MD 30-Aug-2020 18:00:45
[2020-08-30 18:23] VITALS: BP 135/86
== END 2020-08-30 18:24 | disposition home or self-care (01) ==
LOC: ER 14:55
DX: R22.0 Localized swelling, mass and lump, head (principal); T50.905A Adverse effect of unspecified drugs, medicaments and biological substances, initial encounter; I10 Essential (primary) hypertension; Z88.8 Allergy status to other drugs, medicaments and biological substances; Z91.013 Allergy to seafood; R42 Dizziness and giddiness
CPT/HCPCS: 93005; 99284; 96372; 96374; 96375; 36415; 85025; 80053; 93010; J1200; J0171; J2930; S0028